=== PATIENT | male | born 1955 | race Caucasian/White ===

== ENCOUNTER 2018-08-04 18:42 | Emergency (ER) | payer OTHER ==
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
[2018-08-04 19:04] VITALS: BP 163/89; PULSE 95; TEMP 98.3; BMI 39.1
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
== END 2018-08-04 19:42 | disposition home or self-care (01) ==
LOC: JERFT 18:42
DX: S16.1XXA Strain of muscle, fascia and tendon at neck level, initial encounter (principal); V49.49XA Driver injured in collision with other motor vehicles in traffic accident, initial encounter; Y92.414 Local residential or business street as the place of occurrence of the external cause; Y93.89 Activity, other specified; Y99.8 Other external cause status; I25.10 Atherosclerotic heart disease of native coronary artery without angina pectoris; I10 Essential (primary) hypertension; Z95.1 Presence of aortocoronary bypass graft; E78.5 Hyperlipidemia, unspecified; J44.9 Chronic obstructive pulmonary disease, unspecified; J45.909 Unspecified asthma, uncomplicated; Z87.891 Personal history of nicotine dependence
CPT/HCPCS: 99281-25

== ENCOUNTER 2021-05-16 14:36 | Observation (INO) | payer OTHER ==
[2021-05-16 14:40] VITALS: BMI 40.1
[2021-05-16 15:57] LABS: BASO % 0.8 % (0-2.0); EOS % 0.7 % (0-4.5); HEMATOCRIT 43.8 % (35.4-49); HEMOGLOBIN 14.8 GM/dL (11.7-16.9); LYMPH % 14.7 % (8-40); MCH 31.3 pg (25.7-33.7); MCHC 33.7 g/dl (32.0-35.9); MEAN CELL VOLUME 92.8 fl (80-96); MEAN PLT VOLUME 7.7 fl (7.5-11.1); MONO % 6.5 % (3.8-10.2); NEUT % 77.3 % (42.8-82.8); PLATELET COUNT 393 10^3/uL (134-434); RBC 4.72 M/mm3 (4.00-5.60); RDW 13.3 % (11.9-15.9); WHITE BLOOD COUNT 11.5 K/mm3 (4.0-10.0)
[2021-05-16] MEDS ORDERED: ALBUTEROL SO4 2.5/IPRATROPIUM 0.5 INH SOL 3 ML VIAL.NEB. NEB ONE ×3 (15:57→16:55)
[2021-05-16] MEDS: ALBUTEROL SO4 2.5/IPRATROPIUM 0.5 INH SOL 3 ML VIAL.NEB. NEB SCH ×4 (16:03→18:25)
[2021-05-16 16:17] LABS: CHLORIDE 104 mmol/L (98-107); SODIUM 138 mmol/L (136-145)
[2021-05-16 16:19] LABS: ALBUMIN 3.7 g/dl (3.4-5.0); ANION GAP 7 MMOL/L (8-16); BLOOD UREA NITROGEN 18.4 mg/dL (7-18); CO2 27 mmol/L (21-32); GLUCOSE,RANDOM 92 mg/dL (74-106); MAGNESIUM 2.3 mg/dL (1.8-2.4)
[2021-05-16 16:22] LABS: CREATININE 0.9 mg/dL (0.55-1.3); SGOT/AST 29 U/L (15-37); SGPT/ALT 26 U/L (13-61)
[2021-05-16 16:24] LABS: BILIRUBIN,TOTAL 1.2 mg/dL (0.2-1); TOT PROT 7.4 g/dl (6.4-8.2)
[2021-05-16 16:25] LABS: ALK PHOS 98 U/L (45-117)
[2021-05-16] MEDS ORDERED: ADENOSINE 6 MG/2 ML VIAL IVPUSH ONE ×3 (17:33→18:25)
[2021-05-16] MEDS ORDERED: dilTIAZem HCL 50 MG/10 ML - 10 ML VIAL ONE ×2 (17:49→18:01)
[2021-05-16] MEDS ORDERED: LORazepam 2 MG/ML SDV VIAL ONE (17:53)
[2021-05-16] MEDS ORDERED: dilTIAZem HCL 30 MG TABLET ONE (18:20)
[2021-05-16] MEDS ORDERED: dilTIAZem HCL 50 MG/10 ML - 10 ML VIAL IVPUSH ONE ×2 (18:24→18:25)
[2021-05-16] MEDS ORDERED: LORazepam 2 MG/ML SDV VIAL IVPUSH ONE (18:27)
[2021-05-16] MEDS ORDERED: ENOXAPARIN NA (PORCINE) 120 MG/0.8 ML DISP.SYRIN SQ ONE (18:45)
[2021-05-16] MEDS ORDERED: ENOXAPARIN NA (PORCINE) 100 MG/1 ML DISP.SYRIN SQ ONE (19:04)
[2021-05-16] MEDS ORDERED: ATORVASTATIN CA 10 MG TABLET (FP) PO SCH ×2 (20:45→22:00)
[2021-05-16 22:29] LABS: EPI CELLS 21 /uL (0-25.1); HYALINE CASTS 7 /uL (0-3.1); PH,URINE 5.5 (5.0-8.0); URINE APPEARANCE CLEAR; URINE BACTERIA 64 /uL (0-1359); URINE BILIRUBIN NEGATIVE (NEGATIVE); URINE COLOR YELLOW; URINE GLUCOSE (UA) NEGATIVE (NEGATIVE); URINE KETONE TRACE (NEGATIVE); URINE LEUK ESTERASE 1+ (NEGATIVE); URINE NITRITE NEGATIVE (NEGATIVE); URINE PROTEIN TRACE (NEGATIVE); URINE RBC 12 /uL (0-23.9); URINE WBC 113 /uL (0-25.8)
[2021-05-16] MEDS ORDERED: ACETAMINOPHEN 325 MG TABLET (FP) PO PRN (23:47)
[2021-05-16] MEDS: dilTIAZem HCL 30 MG TABLET PO SCH (23:55)
[2021-05-17] MEDS ORDERED: METOPROLOL TARTRATE 5 MG/5 ML VIAL IVPUSH ONE ×2 (03:42→05:53)
[2021-05-17] MEDS ORDERED: METOPROLOL TARTRATE 5 MG/5 ML VIAL IVPUSH PRN (04:17)
[2021-05-17] MEDS: dilTIAZem HCL 30 MG TABLET PO SCH (06:02)
[2021-05-17 07:46] LABS: HEMATOCRIT 41.7 % (35.4-49); HEMOGLOBIN 13.8 GM/dL (11.7-16.9); MCH 31.1 pg (25.7-33.7); MCHC 33.2 g/dl (32.0-35.9); MEAN CELL VOLUME 93.7 fl (80-96); PLATELET COUNT 390 10^3/uL (134-434); RBC 4.44 M/mm3 (4.00-5.60); RDW 13.5 % (11.9-15.9); WHITE BLOOD COUNT 10.1 K/mm3 (4.0-10.0)
[2021-05-17 07:59] LABS: ALBUMIN 3.5 g/dl (3.4-5.0)
[2021-05-17 08:03] LABS: CREATININE 0.8 mg/dL (0.55-1.3); MAGNESIUM 2.2 mg/dL (1.8-2.4)
[2021-05-17 08:04] LABS: CALCIUM 8.7 mg/dL (8.5-10.1); TOT PROT 6.5 g/dl (6.4-8.2)
[2021-05-17 08:05] LABS: BLOOD UREA NITROGEN 18.9 mg/dL (7-18)
[2021-05-17 08:08] LABS: PHOSPHOROUS 3.6 mg/dL (2.5-4.9)
[2021-05-17 08:09] LABS: BILIRUBIN,TOTAL 1.6 mg/dL (0.2-1)
[2021-05-17] MEDS ORDERED: POTASSIUM CHLORIDE TABS 20 MEQ TABLET.ER (FP) PO ONE (09:38)
[2021-05-17] MEDS ORDERED: APIXABAN 5 MG TABLET PO SCH (10:00)
[2021-05-17] MEDS ORDERED: BUDESONIDE/FORMETEROL FUMARATE 160/4.5 mcg INHALER IH SCH (10:00)
[2021-05-17] MEDS ORDERED: ATORVASTATIN CA 20 MG TABLET (FP) PO SCH (12:27)
[2021-05-17 14:50] VITALS: BP 138/77; PULSE 79; TEMP 98.1
== END 2021-05-17 17:30 | disposition home or self-care (01) ==
LOC: JER 14:36 → UNDOADMOB 18:38 → INTOOBSV 18:38 → JERBED 18:38 → J4W 22:38 → JERBED 05-17 13:22
PROVIDERS: ADMIT Hospitalist; ATTEND Internal Medicine
PROC: 3E033GC Introduction of Other Therapeutic Substance into Peripheral Vein, Percutaneous Approach (ICD-10-PCS; principal; 2021-05-17)
PROC: 3E013GC Introduction of Other Therapeutic Substance into Subcutaneous Tissue, Percutaneous Approach (ICD-10-PCS; 2021-05-17)
PROC: 3E0F7SF Introduction of Other Gas into Respiratory Tract, Via Natural or Artificial Opening (ICD-10-PCS; 2021-05-17)
DX: R00.2 Palpitations (principal); I48.3 Typical atrial flutter; I45.19 Other right bundle-branch block; I10 Essential (primary) hypertension; E78.5 Hyperlipidemia, unspecified; J45.909 Unspecified asthma, uncomplicated; I73.9 Peripheral vascular disease, unspecified; F17.210 Nicotine dependence, cigarettes, uncomplicated; Z95.1 Presence of aortocoronary bypass graft; Z79.82 Long term (current) use of aspirin
CPT/HCPCS: 36415; 71046-TC-FY; 80053; 80061; 81003; 82550; 82553; 83036; 83721; 83735; 84100; 84443; 84484; 85025; 85027; 93005; 93010; 93306-TC; 94640; 96372; 96374; 96375; 96376; 99285-25; C9803; G0378; U0003; U0005

== ENCOUNTER 2022-08-27 11:40 | Inpatient (IN) | payer OTHER ==
[2022-08-27] MEDS ORDERED: ALBUTEROL SO4 2.5/IPRATROPIUM 0.5 INH SOL 3 ML VIAL.NEB. NEB ONE (12:20)
[2022-08-27] MEDS ORDERED: methylPREDNISolone NA SUCC 125 MG/2 ML VIAL IVPUSH ONE (12:25)
[2022-08-27] MEDS: ALBUTEROL SO4 2.5/IPRATROPIUM 0.5 INH SOL 3 ML VIAL.NEB. NEB SCH ×5 (12:42→21:02)
[2022-08-27] MEDS ORDERED: methylPREDNISolone NA SUCC 125 MG/2 ML VIAL ONE (12:45)
[2022-08-27 13:06] LABS: BASO % 0.6 % (0-2.0); EOS % 0.1 % (0-4.5); HEMATOCRIT 37.4 % (35.4-49); LYMPH % 6.3 % (8-40); MCH 31.2 pg (25.7-33.7); MCHC 34.8 g/dl (32.0-35.9); MEAN CELL VOLUME 89.7 fl (80-96); MEAN PLT VOLUME 8.2 fl (7.5-11.1); MONO % 5.1 % (3.8-10.2); NEUT % 87.9 % (42.8-82.8); PLATELET COUNT 371 10^3/uL (134-434); RBC 4.17 M/mm3 (4.00-5.60); RDW 13.5 % (11.9-15.9); WHITE BLOOD COUNT 14.6 K/mm3 (4.0-10.0)
[2022-08-27 13:24] LABS: CHLORIDE 97 mmol/L (98-107); SODIUM 130 mmol/L (136-145)
[2022-08-27 13:30] LABS: ALBUMIN 3.6 g/dl (3.4-5.0); CALCIUM 9.1 mg/dL (8.5-10.1); CO2 26 mmol/L (21-32); GLUCOSE,RANDOM 103 mg/dL (74-106)
[2022-08-27 13:33] LABS: CREATININE 1.1 mg/dL (0.55-1.3)
[2022-08-27 13:35] LABS: BILIRUBIN,TOTAL 1.6 mg/dL (0.2-1); TOT PROT 7.7 g/dl (6.4-8.2)
[2022-08-27 13:36] LABS: ALK PHOS 111 U/L (45-117)
[2022-08-27 13:37] LABS: N-TERMINAL BNP 283.4 pg/ml (5-125)
[2022-08-27 13:40] LABS: ANION GAP 8 MMOL/L (8-16); SGOT/AST 79 U/L (15-37); SGPT/ALT 27 U/L (13-61)
[2022-08-27] MEDS ORDERED: AZITHROMYCIN IVPB 500 MG in DEXTROSE 5%-WATER - 250 ML IVPB ONE (14:02)
[2022-08-27] MEDS ORDERED: CEFTRIAXONE 1,000 MG in DEXTROSE 5%-WATER - 50 ML IVPB ONE (14:02)
[2022-08-27] MEDS ORDERED: AZITHROMYCIN IVPB 500 MG/250 ML BAG IVPB ONE (14:21)
[2022-08-27] MEDS ORDERED: CEFTRIAXONE 1 GM/50 ML BAG ONE (14:21)
[2022-08-27 14:56] LABS: VENOUS BASE EXCESS 0.5 mmol/L (-2-2); VENOUS O2 SATURATION 94.5 % (70-80); VENOUS PCO2 43.4 mmHg (38-52)
[2022-08-27] MEDS ORDERED: LORazepam 2 MG/ML SDV VIAL IVPUSH ONE (15:19)
[2022-08-27 16:23] LABS: INR 1.6 (0.83-1.09); PROTHROMBIN TIME (PATIENT) 18.5 SEC (9.7-13.0)
[2022-08-27 16:26] LABS: ACTIVATED PTT 33.2 SECONDS (25.2-36.5)
[2022-08-27 16:41] LABS: CREATININE 1.2 mg/dL (0.55-1.3)
[2022-08-27 17:43] LABS: EPI CELLS 3 /uL (0-25.1); HYALINE CASTS 0 /uL (0-3.1); PH,URINE 5.5 (5.0-8.0); URINE APPEARANCE CLEAR; URINE BACTERIA 4 /uL (0-1359); URINE BILIRUBIN NEGATIVE (NEGATIVE); URINE COLOR YELLOW; URINE GLUCOSE (UA) NEGATIVE (NEGATIVE); URINE KETONE NEGATIVE (NEGATIVE); URINE LEUK ESTERASE 1+ (NEGATIVE); URINE NITRITE NEGATIVE (NEGATIVE); URINE PROTEIN NEGATIVE (NEGATIVE); URINE RBC 7 /uL (0-23.9); URINE UROBILINOGEN 0.2 mg/dL (0.2-1.0); URINE WBC 11 /uL (0-25.8)
[2022-08-27] MEDS ORDERED: POTASSIUM CHLORIDE TABS 20 MEQ TABLET.ER (FP) PO ONE (17:46)
[2022-08-27] MEDS: methylPREDNISolone NA SUCC 40 MG/1 ML VIAL IVPUSH SCH (17:53)
[2022-08-27] MEDS ORDERED: ALBUTEROL SO4 2.5/IPRATROPIUM 0.5 INH SOL 3 ML VIAL.NEB. NEB SCH (18:00)
[2022-08-27] MEDS ORDERED: FAMOTIDINE 20 MG/50 ML IVPB 20 MG/50 ML MG IVPB ONE ×2 (18:21→18:57)
[2022-08-27] MEDS ORDERED: methylPREDNISolone NA SUCC 40 MG/1 ML VIAL ONE (18:43)
[2022-08-27] MEDS ORDERED: POTASSIUM CHLORIDE ORAL LIQUID 20 MEQ/15 ML ONE (18:43)
[2022-08-27 20:28] LABS: CHOLESTEROL 146 mg/dL (50-200)
[2022-08-27 20:30] LABS: TRIGLYCERIDES 75 mg/dL (0-150)
[2022-08-27 20:31] LABS: LDL CHOLESTEROL (ONLY SJRH) 109 mg/dL (5-100)
[2022-08-27 20:33] LABS: HDL CHOLESTEROL 43 mg/dL (40-60)
[2022-08-27] MEDS: OSELTAMIVIR PHOSPHATE 75 MG CAPSULE PO SCH ×2 (21:31→22:56)
[2022-08-27] MEDS ORDERED: LORazepam 1 MG TABLET PO ONE (21:39)
[2022-08-27] MEDS: MONTELUKAST NA 10 MG TABLET PO SCH (22:22)
[2022-08-27] MEDS: APIXABAN 5 MG TABLET PO SCH (22:22)
[2022-08-27] MEDS: ATORVASTATIN CA 20 MG TABLET (FP) PO SCH (22:23)
[2022-08-27] MEDS: BUDESONIDE/FORMETEROL FUMARATE 160/4.5 mcg INHALER IH SCH (22:24)
[2022-08-28] MEDS: methylPREDNISolone NA SUCC 40 MG/1 ML VIAL IVPUSH SCH ×3 (00:59→17:57)
[2022-08-28] MEDS: ALBUTEROL SO4 2.5/IPRATROPIUM 0.5 INH SOL 3 ML VIAL.NEB. NEB SCH ×2 (08:35→12:16)
[2022-08-28 08:50] LABS: HEMATOCRIT 35.4 % (35.4-49); HEMOGLOBIN 12.2 GM/dL (11.7-16.9); MCHC 34.4 g/dl (32.0-35.9); MEAN CELL VOLUME 90.1 fl (80-96); PLATELET COUNT 309 10^3/uL (134-434); RBC 3.93 M/mm3 (4.00-5.60); RDW 13.3 % (11.9-15.9); WHITE BLOOD COUNT 14.9 K/mm3 (4.0-10.0)
[2022-08-28 09:13] LABS: CALCIUM 9.3 mg/dL (8.5-10.1)
[2022-08-28 09:15] LABS: ALBUMIN 3.2 g/dl (3.4-5.0); BLOOD UREA NITROGEN 17.9 mg/dL (7-18); MAGNESIUM 2.6 mg/dL (1.8-2.4)
[2022-08-28 09:18] LABS: CREATININE 0.9 mg/dL (0.55-1.3); PHOSPHOROUS 2.5 mg/dL (2.5-4.9)
[2022-08-28 09:20] LABS: BILIRUBIN,TOTAL 0.9 mg/dL (0.2-1); TOT PROT 6.6 g/dl (6.4-8.2)
[2022-08-28] MEDS: HYDROCHLOROTHIAZIDE 12.5 MG CAPSULE (FP) PO SCH (10:08)
[2022-08-28] MEDS: APIXABAN 5 MG TABLET PO SCH ×2 (10:08→21:01)
[2022-08-28] MEDS: OSELTAMIVIR PHOSPHATE 75 MG CAPSULE PO SCH ×2 (10:08→22:05)
[2022-08-28] MEDS: MAG HYDROX/AL HYDROX/SIMETH 30 ML UNIT-DOSE CUP PO PRN ×2 (10:16→21:09)
[2022-08-28] MEDS: BUDESONIDE/FORMETEROL FUMARATE 160/4.5 mcg INHALER IH SCH (11:01)
[2022-08-28 11:13] LABS: ANISOCYTOSIS 0; HELMET CELLS 0; HOWELL-JOLLY BODIES 0; MACROCYTOSIS 0; OVALOCYTE 0; ROULEAU 0; SICKELED CELLS 0; TARGET CELLS 0; TEAR DROP CELLS 0; TOXIC GRANULATION 0
[2022-08-28] MEDS ORDERED: METOPROLOL TARTRATE 5 MG/5 ML VIAL IVPUSH ONE ×2 (13:02→23:45)
[2022-08-28] MEDS ORDERED: TIOTROPIUM BROMIDE 2.5 MCG (SPIRIVA) RESPIMAT INHALER IH SCH (13:30)
[2022-08-28] MEDS: LEVALBUTEROL HCL 0.31 MG/3 ML VIAL.NEB IH SCH ×2 (14:35→19:45)
[2022-08-28] MEDS: IPRATROPIUM BR 0.02% 0.5 MG/2.5 ML VIAL.NEB. NEB SCH ×2 (15:20→19:46)
[2022-08-28] MEDS: AZITHROMYCIN 250 MG TABLET PO SCH (15:53)
[2022-08-28] MEDS: ATORVASTATIN CA 20 MG TABLET (FP) PO SCH (21:30)
[2022-08-28] MEDS ORDERED: LORazepam 2 MG/ML SDV VIAL IVPUSH ONE (21:40)
[2022-08-28] MEDS ORDERED: LORazepam 2 MG TABLET PO ONE (21:56)
[2022-08-28] MEDS: MONTELUKAST NA 10 MG TABLET PO SCH (22:00)
[2022-08-28] MEDS ORDERED: LORazepam 1 MG TABLET PO ONE (22:08)
[2022-08-28] MEDS ORDERED: ADENOSINE 6 MG/2 ML VIAL IVPUSH ONE ×2 (23:30→23:35)
[2022-08-28] MEDS ORDERED: METOPROLOL TARTRATE 5 MG/5 ML VIAL ONE (23:37)
[2022-08-29] MEDS: methylPREDNISolone NA SUCC 40 MG/1 ML VIAL IVPUSH SCH (01:00)
[2022-08-29] MEDS ORDERED: dilTIAZem HCL 50 MG/10 ML - 10 ML VIAL IVPUSH ONE ×4 (02:41→12:34)
[2022-08-29 03:59] LABS: HEMATOCRIT 35.6 % (35.4-49); MCH 30.8 pg (25.7-33.7); MCHC 33.7 g/dl (32.0-35.9); MEAN CELL VOLUME 91.4 fl (80-96); PLATELET COUNT 304 10^3/uL (134-434); RDW 13.5 % (11.9-15.9); WHITE BLOOD COUNT 19.6 K/mm3 (4.0-10.0)
[2022-08-29 04:03] LABS: PH,URINE 6.5 (5.0-8.0); URINE APPEARANCE CLEAR; URINE BILIRUBIN NEGATIVE (NEGATIVE); URINE COLOR YELLOW; URINE GLUCOSE (UA) NEGATIVE (NEGATIVE); URINE KETONE NEGATIVE (NEGATIVE); URINE LEUK ESTERASE NEGATIVE (NEGATIVE); URINE NITRITE NEGATIVE (NEGATIVE); URINE PROTEIN NEGATIVE (NEGATIVE); URINE UROBILINOGEN 0.2 mg/dL (0.2-1.0)
[2022-08-29 04:19] LABS: BLOOD UREA NITROGEN 33.1 mg/dL (7-18); CALCIUM 8.9 mg/dL (8.5-10.1); MAGNESIUM 2.5 mg/dL (1.8-2.4)
[2022-08-29 04:20] LABS: ALBUMIN 3.2 g/dl (3.4-5.0)
[2022-08-29 04:23] LABS: CREATININE 1.2 mg/dL (0.55-1.3)
[2022-08-29 04:24] LABS: BILIRUBIN,TOTAL 0.4 mg/dL (0.2-1); TOT PROT 6.5 g/dl (6.4-8.2)
[2022-08-29] MEDS ORDERED: SODIUM CHLORIDE 250 ML IV STA ×2 (04:24→04:42)
[2022-08-29 05:15] LABS: ANISOCYTOSIS 2+; MACROCYTOSIS 0; OVALOCYTE 2+
[2022-08-29] MEDS: IPRATROPIUM BR 0.02% 0.5 MG/2.5 ML VIAL.NEB. NEB SCH ×4 (08:25→20:09)
[2022-08-29] MEDS: LEVALBUTEROL HCL 0.31 MG/3 ML VIAL.NEB IH SCH ×3 (08:25→20:09)
[2022-08-29] MEDS: HYDROCHLOROTHIAZIDE 12.5 MG CAPSULE (FP) PO SCH (09:47)
[2022-08-29] MEDS: OSELTAMIVIR PHOSPHATE 75 MG CAPSULE PO SCH ×2 (09:47→22:38)
[2022-08-29] MEDS ORDERED: methylPREDNISolone NA SUCC 40 MG/1 ML VIAL IVPUSH SCH (10:00)
[2022-08-29] MEDS: APIXABAN 5 MG TABLET PO SCH ×2 (10:09→22:38)
[2022-08-29] MEDS: NICOTINE 14 MG/24 HOURS TOPICAL PATCH TD SCH (10:09)
[2022-08-29] MEDS: MAG HYDROX/AL HYDROX/SIMETH 30 ML UNIT-DOSE CUP PO PRN (10:29)
[2022-08-29] MEDS: AZITHROMYCIN 250 MG TABLET PO SCH (11:02)
[2022-08-29] MEDS ORDERED: METOPROLOL TARTRATE 50 MG TABLET (FP) PO SCH (12:30)
[2022-08-29] MEDS ORDERED: METOPROLOL TARTRATE 25 MG TABLET (FP) PO SCH ×2 (13:14→22:00)
[2022-08-29] MEDS: METOPROLOL TARTRATE 5 MG/5 ML VIAL IVPUSH PRN (13:24)
[2022-08-29] MEDS ORDERED: METOPROLOL TARTRATE 5 MG/5 ML VIAL IVPUSH ONE (16:01)
[2022-08-29] MEDS: PANTOPRAZOLE 40 MG TABLET PO SCH (18:25)
[2022-08-29] MEDS ORDERED: LORazepam 2 MG/ML SDV VIAL IVPUSH PRN (19:35)
[2022-08-29] MEDS: MONTELUKAST NA 10 MG TABLET PO SCH (22:38)
[2022-08-29] MEDS: ATORVASTATIN CA 20 MG TABLET (FP) PO SCH (22:38)
[2022-08-29] MEDS: SOTALOL HCL 80 MG TABLET (FP) PO SCH (22:39)
[2022-08-30 07:34] LABS: HEMATOCRIT 36.2 % (35.4-49); HEMOGLOBIN 12.1 GM/dL (11.7-16.9); MCH 30.3 pg (25.7-33.7); MCHC 33.5 g/dl (32.0-35.9); MEAN CELL VOLUME 90.5 fl (80-96); MEAN PLT VOLUME 8.1 fl (7.5-11.1); PLATELET COUNT 358 10^3/uL (134-434); RDW 13.5 % (11.9-15.9); WHITE BLOOD COUNT 14.4 K/mm3 (4.0-10.0)
[2022-08-30 07:54] LABS: ALBUMIN 2.8 g/dl (3.4-5.0); BLOOD UREA NITROGEN 31.9 mg/dL (7-18); CALCIUM 8.3 mg/dL (8.5-10.1); MAGNESIUM 2.4 mg/dL (1.8-2.4)
[2022-08-30 07:58] LABS: PHOSPHOROUS 2.9 mg/dL (2.5-4.9); TOT PROT 5.9 g/dl (6.4-8.2)
[2022-08-30 08:00] LABS: BILIRUBIN,TOTAL 0.4 mg/dL (0.2-1)
[2022-08-30] MEDS: LEVALBUTEROL HCL 0.31 MG/3 ML VIAL.NEB IH SCH ×3 (08:20→20:45)
[2022-08-30] MEDS: IPRATROPIUM BR 0.02% 0.5 MG/2.5 ML VIAL.NEB. NEB SCH ×4 (08:20→20:45)
[2022-08-30] MEDS: HYDROCHLOROTHIAZIDE 12.5 MG CAPSULE (FP) PO SCH (09:19)
[2022-08-30] MEDS: predniSONE 20 MG TABLET (UD) PO SCH (09:19)
[2022-08-30] MEDS: OSELTAMIVIR PHOSPHATE 75 MG CAPSULE PO SCH ×2 (09:19→21:35)
[2022-08-30] MEDS: SOTALOL HCL 80 MG TABLET (FP) PO SCH ×2 (09:26→22:36)
[2022-08-30] MEDS: APIXABAN 5 MG TABLET PO SCH ×2 (09:27→21:35)
[2022-08-30] MEDS: PANTOPRAZOLE 40 MG TABLET PO SCH (09:44)
[2022-08-30] MEDS ORDERED: methylPREDNISolone NA SUCC 40 MG/1 ML VIAL IVPUSH SCH (10:00)
[2022-08-30] MEDS ORDERED: predniSONE 20 MG TABLET (UD) PO SCH (10:00)
[2022-08-30] MEDS: NICOTINE 14 MG/24 HOURS TOPICAL PATCH TD SCH (12:13)
[2022-08-30 13:43] VITALS: BMI 38.0
[2022-08-30] MEDS: ATORVASTATIN CA 20 MG TABLET (FP) PO SCH (21:35)
[2022-08-30] MEDS: MONTELUKAST NA 10 MG TABLET PO SCH (21:35)
[2022-08-30] MEDS: LORazepam 1 MG TABLET PO PRN (22:37)
[2022-08-31 07:26] LABS: BASO % 0.4 % (0-2.0); EOS % 0.1 % (0-4.5); HEMATOCRIT 36.9 % (35.4-49); HEMOGLOBIN 12.3 GM/dL (11.7-16.9); LYMPH % 16.9 % (8-40); MCH 30.6 pg (25.7-33.7); MCHC 33.2 g/dl (32.0-35.9); MEAN CELL VOLUME 92.1 fl (80-96); MEAN PLT VOLUME 8.1 fl (7.5-11.1); MONO % 8.4 % (3.8-10.2); NEUT % 74.2 % (42.8-82.8); PLATELET COUNT 361 10^3/uL (134-434); RBC 4.01 M/mm3 (4.00-5.60); RDW 13.9 % (11.9-15.9); WHITE BLOOD COUNT 10.5 K/mm3 (4.0-10.0)
[2022-08-31 07:44] LABS: CALCIUM 8.6 mg/dL (8.5-10.1)
[2022-08-31 07:45] LABS: ALBUMIN 2.7 g/dl (3.4-5.0); BLOOD UREA NITROGEN 25.7 mg/dL (7-18); MAGNESIUM 2.2 mg/dL (1.8-2.4)
[2022-08-31 07:47] LABS: TOT PROT 5.5 g/dl (6.4-8.2)
[2022-08-31 07:48] LABS: PHOSPHOROUS 3.3 mg/dL (2.5-4.9)
[2022-08-31 07:49] LABS: BILIRUBIN,TOTAL 0.5 mg/dL (0.2-1)
[2022-08-31] MEDS: IPRATROPIUM BR 0.02% 0.5 MG/2.5 ML VIAL.NEB. NEB SCH ×4 (08:21→20:44)
[2022-08-31] MEDS: LEVALBUTEROL HCL 0.31 MG/3 ML VIAL.NEB IH SCH ×3 (08:21→20:44)
[2022-08-31] MEDS: SOTALOL HCL 80 MG TABLET (FP) PO SCH ×2 (10:56→21:39)
[2022-08-31] MEDS: predniSONE 20 MG TABLET (UD) PO SCH (10:56)
[2022-08-31] MEDS: NICOTINE 14 MG/24 HOURS TOPICAL PATCH TD SCH (10:56)
[2022-08-31] MEDS: OSELTAMIVIR PHOSPHATE 75 MG CAPSULE PO SCH ×2 (10:56→21:40)
[2022-08-31] MEDS: APIXABAN 5 MG TABLET PO SCH ×2 (10:56→21:39)
[2022-08-31] MEDS: LOSARTAN POTASSIUM 25 MG TABLET PO SCH (10:57)
[2022-08-31] MEDS: PANTOPRAZOLE 40 MG TABLET PO SCH (10:57)
[2022-08-31] MEDS: ATORVASTATIN CA 20 MG TABLET (FP) PO SCH (21:39)
[2022-08-31] MEDS: MONTELUKAST NA 10 MG TABLET PO SCH (21:40)
[2022-09-01] MEDS: IPRATROPIUM BR 0.02% 0.5 MG/2.5 ML VIAL.NEB. NEB SCH ×4 (07:48→20:58)
[2022-09-01] MEDS: LEVALBUTEROL HCL 0.31 MG/3 ML VIAL.NEB IH SCH ×3 (07:49→20:58)
[2022-09-01 08:10] LABS: CALCIUM 8.5 mg/dL (8.5-10.1)
[2022-09-01 08:11] LABS: ALBUMIN 2.6 g/dl (3.4-5.0); BLOOD UREA NITROGEN 25.5 mg/dL (7-18)
[2022-09-01 08:14] LABS: CREATININE 1.1 mg/dL (0.55-1.3)
[2022-09-01 08:15] LABS: BILIRUBIN,TOTAL 0.4 mg/dL (0.2-1)
[2022-09-01 08:16] LABS: TOT PROT 5.4 g/dl (6.4-8.2)
[2022-09-01] MEDS: PANTOPRAZOLE 40 MG TABLET PO SCH (10:49)
[2022-09-01] MEDS: OSELTAMIVIR PHOSPHATE 75 MG CAPSULE PO SCH (10:49)
[2022-09-01] MEDS: NICOTINE 14 MG/24 HOURS TOPICAL PATCH TD SCH (10:49)
[2022-09-01] MEDS: APIXABAN 5 MG TABLET PO SCH ×2 (10:50→22:26)
[2022-09-01] MEDS: LORazepam 1 MG TABLET PO PRN ×2 (10:50→22:41)
[2022-09-01] MEDS: LOSARTAN POTASSIUM 25 MG TABLET PO SCH (10:50)
[2022-09-01] MEDS: SOTALOL HCL 80 MG TABLET (FP) PO SCH ×2 (10:51→22:26)
[2022-09-01] MEDS: predniSONE 20 MG TABLET (UD) PO SCH (10:53)
[2022-09-01] MEDS ORDERED: dilTIAZem HCL 30 MG TABLET PO ONE (13:41)
[2022-09-01] MEDS: METOPROLOL TARTRATE 5 MG/5 ML VIAL IVPUSH PRN ×3 (13:55→22:41)
[2022-09-01] MEDS: ATORVASTATIN CA 20 MG TABLET (FP) PO SCH (22:26)
[2022-09-01] MEDS: MONTELUKAST NA 10 MG TABLET PO SCH (22:26)
[2022-09-02] MEDS: METOPROLOL TARTRATE 5 MG/5 ML VIAL IVPUSH PRN ×2 (04:03→12:20)
[2022-09-02 07:29] LABS: CALCIUM 8.4 mg/dL (8.5-10.1)
[2022-09-02 07:30] LABS: ALBUMIN 2.7 g/dl (3.4-5.0); BLOOD UREA NITROGEN 26.1 mg/dL (7-18)
[2022-09-02 07:35] LABS: BILIRUBIN,TOTAL 0.4 mg/dL (0.2-1); TOT PROT 5.5 g/dl (6.4-8.2)
[2022-09-02] MEDS: LEVALBUTEROL HCL 0.31 MG/3 ML VIAL.NEB IH SCH (08:34)
[2022-09-02] MEDS: IPRATROPIUM BR 0.02% 0.5 MG/2.5 ML VIAL.NEB. NEB SCH ×2 (08:34→11:35)
[2022-09-02 08:52] LABS: HEMATOCRIT 38.9 % (35.4-49); HEMOGLOBIN 12.7 GM/dL (11.7-16.9); MAGNESIUM 2.3 mg/dL (1.8-2.4); MCH 30.1 pg (25.7-33.7); MCHC 32.7 g/dl (32.0-35.9); MEAN PLT VOLUME 8.4 fl (7.5-11.1); PLATELET COUNT 405 10^3/uL (134-434); RBC 4.23 M/mm3 (4.00-5.60); RDW 13.3 % (11.9-15.9); WHITE BLOOD COUNT 14.9 K/mm3 (4.0-10.0)
[2022-09-02 08:56] LABS: PHOSPHOROUS 3.9 mg/dL (2.5-4.9)
[2022-09-02] MEDS: predniSONE 20 MG TABLET (UD) PO SCH (09:32)
[2022-09-02] MEDS: PANTOPRAZOLE 40 MG TABLET PO SCH (09:33)
[2022-09-02] MEDS: NICOTINE 14 MG/24 HOURS TOPICAL PATCH TD SCH (09:34)
[2022-09-02] MEDS: SOTALOL HCL 80 MG TABLET (FP) PO SCH ×2 (09:34→23:00)
[2022-09-02] MEDS: APIXABAN 5 MG TABLET PO SCH ×2 (09:34→22:28)
[2022-09-02] MEDS: LOSARTAN POTASSIUM 25 MG TABLET PO SCH ×2 (09:35→09:48)
[2022-09-02] MEDS: ATORVASTATIN CA 20 MG TABLET (FP) PO SCH (22:28)
[2022-09-02] MEDS: MONTELUKAST NA 10 MG TABLET PO SCH (22:28)
[2022-09-03 06:30] VITALS: RESP 16
[2022-09-03 07:45] LABS: BASO % 0.6 % (0-2.0); EOS % 0.6 % (0-4.5); HEMOGLOBIN 12.3 GM/dL (11.7-16.9); LYMPH % 16.1 % (8-40); MCH 30.4 pg (25.7-33.7); MCHC 33.2 g/dl (32.0-35.9); MEAN CELL VOLUME 91.5 fl (80-96); MEAN PLT VOLUME 8.1 fl (7.5-11.1); MONO % 8.8 % (3.8-10.2); NEUT % 73.9 % (42.8-82.8); PLATELET COUNT 379 10^3/uL (134-434); RBC 4.04 M/mm3 (4.00-5.60); RDW 13.7 % (11.9-15.9); WHITE BLOOD COUNT 16.4 K/mm3 (4.0-10.0)
[2022-09-03 08:09] LABS: CALCIUM 8.4 mg/dL (8.5-10.1)
[2022-09-03 08:10] LABS: ALBUMIN 2.8 g/dl (3.4-5.0); BLOOD UREA NITROGEN 29.9 mg/dL (7-18)
[2022-09-03 08:14] LABS: BILIRUBIN,TOTAL 0.5 mg/dL (0.2-1)
[2022-09-03 08:15] LABS: TOT PROT 5.5 g/dl (6.4-8.2)
[2022-09-03 08:27] VITALS: BP 134/87; TEMP 97.8
[2022-09-03 08:44] VITALS: PULSE 73
[2022-09-03] MEDS: SOTALOL HCL 80 MG TABLET (FP) PO SCH (09:51)
[2022-09-03] MEDS: APIXABAN 5 MG TABLET PO SCH (09:52)
[2022-09-03] MEDS: NICOTINE 14 MG/24 HOURS TOPICAL PATCH TD SCH (09:52)
[2022-09-03] MEDS: predniSONE 20 MG TABLET (UD) PO SCH (09:52)
[2022-09-03] MEDS: LOSARTAN POTASSIUM 25 MG TABLET PO SCH (09:52)
[2022-09-03] MEDS: PANTOPRAZOLE 40 MG TABLET PO SCH (09:53)
== END 2022-09-03 16:00 | disposition home or self-care (01) | DRG 191 ==
LOC: JER 11:40 → JERBED 15:20 → OBSVTOIN 17:39 → J4S 20:02 → JICU 08-29 15:49
PROVIDERS: ADMIT Internal Medicine; ATTEND Internal Medicine
PROC: 5A2204Z Restoration of Cardiac Rhythm, Single (ICD-10-PCS; principal; 2022-09-02 13:30)
DX: J44.1 Chronic obstructive pulmonary disease with (acute) exacerbation (principal); I47.20 Ventricular tachycardia, unspecified; I48.92 Unspecified atrial flutter; J45.901 Unspecified asthma with (acute) exacerbation; I10 Essential (primary) hypertension; I73.9 Peripheral vascular disease, unspecified; E78.5 Hyperlipidemia, unspecified; F41.9 Anxiety disorder, unspecified; F17.210 Nicotine dependence, cigarettes, uncomplicated; J10.1 Influenza due to other identified influenza virus with other respiratory manifestations; E66.9 Obesity, unspecified; Z68.39 Body mass index [BMI] 39.0-39.9, adult; G47.33 Obstructive sleep apnea (adult) (pediatric)
CPT/HCPCS: 0241U-QW; 36415; 71045-TC-FY; 80048; 80053; 80061; 81003; 82803; 83036; 83605; 83735; 83880; 84100; 84443; 84484; 85025; 85027; 85379; 85610; 85730; 87040; 87070; 87086; 87205; 87804; 93005; 93010; 94640; 94660; 99291; C9803-CS; G0378; U0003; U0005